=== PATIENT | female | born 1990 | race Caucasian/White ===

== ENCOUNTER 2017-02-06 23:38 | Emergency (ER) | payer OTHER ==
[2017-02-06 23:55] VITALS: RESP 16; TEMP 98.2; O2SAT 95
[2017-02-07] MEDS ORDERED: TDAP ADULT 0.5 ML INJ (BOOSTRIX) IM ONE (00:24)
--- NOTE | 2017-02-07 00:24 | EDPHY ---
H & P Time Seen by Provider: 02/07/17 00:14 HPI/ROS: CHIEF COMPLAINT: Right thumb laceration HISTORY OF PRESENT ILLNESS: This is a 26-year-old female presenting to the emergency department status post cutting her right thumb on a wine glass this evening around 2029 while at work. Patient also states her tetanus vaccine is not up-to-date. Patient was unsure she needed stitches. Denies any other complaints REVIEW OF SYSTEMS: Constitutional: No fever, no chills. Eyes: No discharge. No blurred vision ENT: No sore throat. Cardiovascular: No chest pain, no palpitations. Respiratory: No cough, no shortness of breath. Gastrointestinal: No abdominal pain, no vomiting. Musculoskeletal: No back pain. Right thumb laceration Skin: No rashes. Neurological: No headache. Smoking Status: Never smoked Physical Exam: General Appearance: Alert and no distress. HEENT: Normocephalic atraumatic Pupils equal and round no injection. Respiratory: lungs are clear to auscultation. Cardiac: regular rate and rhythm Musculoskeletal: Neck full range of motion Extremities: Right posterior medial aspect right thumb 1 cm superficial laceration. No flexor tendon involvement full range of motion. Positive CMS intact Skin: No rashes or lesions. Constitutional: Initial Vital Signs Temperature (C) 36.8 C 02/06/17 23:52 Heart Rate 79 02/06/17 23:52 Respiratory Rate 16 02/06/17 23:52 Blood Pressure 121/81 H 02/06/17 23:52 O2 Sat (%) 95 02/06/17 23:52 O2 Delivery Mode Room Air Allergies/Adverse Reactions: No Known Allergies Allergy (Unverified 02/06/17 23:51) Home Medications: Medication Instructions Recorded Multivitamin 02/06/17 Medical Decision Making Procedures: Procedure: Laceration repair. Verbal consent was obtained from the patient. 1cm laceration on the right thumb. 0.5% bupivacaine without epi 3 ml. The wound was irrigated. There were no deep structures involved. The wound was repaired using Dermabond and Steri- Strips The procedure was performed by myself. A dressing was applied by our EMT. ED Course/Re-evaluation: Discussed ED plan of care: Wound irrigation, wound repair. Tetanus vaccine 0045: Wound repair using Dermabond. Patient tolerated procedure. Discharge home---> stable, discussed discharge instructions with patient Differential Diagnosis: Other differential diagnosis considered but not limited to laceration involving tendon, foreign body, and avulsion fracture - Data Points Medications Given: Discontinued Medications Diphtheria/Tetanus/Acell Pertussis (Boostrix) 0.5 ml IM .ONCE ONE Stop: 02/07/17 00:25 Last Admin: 02/07/17 00:41 Dose: 0.5 ml Departure - Departure Disposition: Home, Routine, Self-Care Clinical Impression: Laceration Condition: Good Instructions: Laceration (ED), Care For Your Absorbable Stitches (ED) Additional Instructions: 1. We have initial dressing on for 24 hours. Then daily dressing changes 2. Keep wound clean and dry. Steri-Strips and glue will fall off by itself do not pick 3. Monitor for any signs of infection, such as: Red streaks, swelling, pus if this should occur return to the ER 4. Ibuprofen 600 mg every 6-8 hours as needed 5 you were also given a tetanus shot today, this is good for 10 years Referrals: NONE *PRIMARY CARE P,. [Primary Care Provider] - As per Instructions [facility],. [Clinic] - As per Instructions
[2017-02-07] MEDS ORDERED: SKIN ADHESIVE (DERMABOND) 1 EACH TP ONE (00:40)
[2017-02-07 01:03] VITALS: BP 120/68; PULSE 72
== END 2017-02-07 01:02 | disposition home or self-care (01) ==
PROC: 0HQFXZZ Repair Right Hand Skin, External Approach (ICD-10-PCS; principal; 2017-02-06)
DX: S61.011A Laceration without foreign body of right thumb without damage to nail, initial encounter (principal); Z23 Encounter for immunization; W25.XXXA Contact with sharp glass, initial encounter; Y92.89 Other specified places as the place of occurrence of the external cause; Y99.0 Civilian activity done for income or pay; Y93.89 Activity, other specified